=== PATIENT | male | born 1955 | race African-American/Black ===

== ENCOUNTER 2018-08-06 19:42 | Emergency (ER) | payer OTHER ==
[2018-08-06 19:55] VITALS: BP 144/85; PULSE 96; TEMP 98.8; BMI 22.9
--- NOTE | 2018-08-06 19:59 | PDOC ---
Rapid Medical Evaluation Chief Complaint: Laceration Time Seen by Provider: 08/06/18 19:56 Medical Evaluation: Allergies Allergy/AdvReac Type Severity Reaction Status Date / Time No Known Allergies Allergy Verified 08/06/18 19:51 Vital Signs Temp Pulse Resp BP Pulse Ox 98.8 F 96 H 18 144/85 97 08/06/18 19:52 08/06/18 19:52 08/06/18 19:52 08/06/18 19:52 08/06/18 19:52 08/06/18 19:57 I have performed a brief in-person evaluation of this patient. The patient presents with a chief complaint of: injury to right 4th digit x this afternoon. Patient reports laceration on closet door. possible tetanus from surgery within the last 5 years Pertinent physical exam findings: NAD even and unlabored breathing +dressing on 4th right digit I have ordered the following: xray of right 4th digit The patient will proceed to the ED for further evaluation. Discharge Disposition - Diagnosis Laceration of finger - Referrals - Patient Instructions - Post Discharge Activity
[2018-08-06] MEDS ORDERED: CEFAZOLIN 1 GM in DEXTROSE 5%-WATER - 50 ML IVPB ONE (20:53)
--- NOTE | 2018-08-06 21:00 | PDOC ---
History of Present Illness - General Chief Complaint: Laceration Stated Complaint: LACERATION RIGHT FOURTH FINGER Time Seen by Provider: 08/06/18 19:56 - History of Present Illness Initial Comments: 08/06/18 20:56 63-year-old male with a past medical history history significant for hypertension presents for evaluation of a right fourth digit injury. The injury occurred while falling into a closet door accidentally closed door on the tip of his finger. Seen at an urgent care he was told to report to the emergency room for further evaluation. Past History - Past Medical History Allergies/Adverse Reactions: Allergies Allergy/AdvReac Type Severity Reaction Status Date / Time No Known Allergies Allergy Verified 08/06/18 19:51 Home Medications: Ambulatory Orders Cephalexin [Keflex] 500 mg PO QID 5 Days #20 capsule 08/06/18 Hydrochlorothiazide [Hctz -] 37.5 mg PO DAILY 08/06/18 COPD: No HTN: Yes - Surgical History Appendectomy: Yes GI Surgery: Yes (bowel obstruction) - Suicide/Smoking/Psychosocial Hx Smoking History: Never smoked Review of Systems - Review of Systems Musculoskeletal: Yes: See HPI *Physical Exam - Vital Signs Last Vital Signs Temp Pulse Resp BP Pulse Ox 98.8 F 96 H 18 144/85 97 08/06/18 19:52 08/06/18 19:52 08/06/18 19:52 08/06/18 19:52 08/06/18 19:52 - Physical Exam Comments: 08/06/18 20:57 The distal portion of the right fourth finger sheared off the nail is intact FDS and FDP work independently. Subcutaneous fat is exposed. I do not visualize bone. He has no gross motor deficits sensory is intact at the tip of the finger. Moderate Sedation - Procedure Monitoring Vital Signs: Procedure Monitoring Vital Signs Temperature 98.8 F 08/06/18 19:52 Pulse Rate 96 H 08/06/18 19:52 Respiratory Rate 18 08/06/18 19:52 Blood Pressure 144/85 08/06/18 19:52 O2 Sat by Pulse Oximetry (%) 97 08/06/18 19:52 Medical Decision Making - Medical Decision Making 08/06/18 20:57 X-ray show a eloisa fracture at the distal phalanx. This is an open eloisa fracture of the right fourth digit. Patient was given a digital block aseptically. Cleaned with Betadine and saline placed in a dry sterile dressing with Xeroform with a bandage to cover. This case was discussed with hand surgery. Hand surgery will see him in 2 days by mouth antibiotics given at discharge IV Ancef given in the emergency room. Dr Phan is in agreement with this plan. *DC/Admit/Observation/Transfer Diagnosis at time of Disposition: Open fracture of tuft of distal phalanx of finger Diagnosis at time of Disposition: (Ruled Out): Laceration of finger - Discharge Dispostion Disposition: HOME Condition at time of disposition: Stable Decision to Admit order: No - Prescriptions Prescriptions: Cephalexin [Keflex] 500 mg PO QID 5 Days #20 capsule - Referrals Referrals: Agusto Phan MD [Staff Physician] - - Patient Instructions Printed Discharge Instructions: DI for Open Fracture Additional Instructions: Please follow up with Dr Phan [phone]. Call tomorrow for an appointment and Dr Phan will see you Monday in his clinic - Post Discharge Activity
[2018-08-06] MEDS ORDERED: CEFAZOLIN 1 GM/D5W 1 GM/50 ML BAG ONE (21:24)
== END 2018-08-06 21:52 | disposition home or self-care (01) ==
LOC: JERFT 19:42
PROC: 3E03329 Introduction of Other Anti-infective into Peripheral Vein, Percutaneous Approach (ICD-10-PCS; principal; 2018-08-06)
PROC: 3E013BZ Introduction of Anesthetic Agent into Subcutaneous Tissue, Percutaneous Approach (ICD-10-PCS; 2018-08-06)
DX: S62.664B Nondisplaced fracture of distal phalanx of right ring finger, initial encounter for open fracture (principal); W01.198A Fall on same level from slipping, tripping and stumbling with subsequent striking against other object, initial encounter; Y93.89 Activity, other specified; Y92.89 Other specified places as the place of occurrence of the external cause; Y99.8 Other external cause status
CPT/HCPCS: 73140-TC-RT-FY; 99281-25

== ENCOUNTER 2018-08-08 13:15 | Day surgery (SDC) | payer OTHER ==
[2018-08-08 13:24] VITALS: BMI 22.9
--- NOTE | 2018-08-08 13:24 | PDOC ---
History of Present Illness - History of Present Illness Initial Comments: 08/08/18 13:48 The patient is a 63 year old male, with a significant past medical history of hypertension, who presents to the emergency department with a right fourth digit injury sustained after falling into a closet door on Monday. He states he has a weak knee (secondary to a torn right meniscus with plan for surgical repair in September) and his knee gave out when he was walking which is what prompted his fall. He states the closet door closed on his finger. He states he is in 9/10 pain currently. He states he was unable to recover the top of his finger the was avulsed off during the incident. He states he was advised by urgent care to come to the emergency room for further evaluation. The patient denies chest pain, shortness of breath, headache and dizziness. The patient denies fever, chills, nausea, vomit, diarrhea and constipation. The patient denies dysuria, frequency, urgency and hematuria. Allergies:NKDA Past surgical history: bowel resection Social history: denies toxic habits <Brandi Morales - Last Filed: 08/08/18 13:48> - General History Source: Patient Exam Limitations: No Limitations <Karen Berry - Last Filed: 08/09/18 08:28> - General Chief Complaint: Bone Injury Stated Complaint: HAND INJURY Time Seen by Provider: 08/08/18 13:24 Past History <Brandi Morales - Last Filed: 08/08/18 13:48> - Past Medical History COPD: No HTN: Yes - Surgical History Appendectomy: Yes GI Surgery: Yes (bowel obstruction) - Suicide/Smoking/Psychosocial Hx Smoking History: Former smoker Have you smoked in the past 12 months: No If you are a former smoker, when did you quit?: 2008 Information on smoking cessation initiated: Yes Hx Alcohol Use: No Drug/Substance Use Hx: No <Karen Berry - Last Filed: 08/09/18 08:28> - Past Medical History Allergies/Adverse Reactions: Allergies Allergy/AdvReac Type Severity Reaction Status Date / Time Iodinated Contrast- Oral and Allergy Verified 08/08/18 13:47 IV Dye Home Medications: Ambulatory Orders Hydrochlorothiazide [Hctz -] 37.5 mg PO DAILY 08/06/18 Amox-Tr/K Cl [Augmentin - 875Mg Tablet] 1 tab PO BID #14 tablet 08/08/18 Oxycodone HCl/Acetaminophen [Percocet 5/325 -] 1 - 2 tab PO Q6H 5 Days #40 tab MDD 5 08/08/18 Review of Systems - Review of Systems Able to Perform ROS?: Yes Comments:: 08/08/18 13:49 CONSTITUTIONAL: Absent: fever, no chills, no fatigue EYES: Absent: visual changes ENT: Absent: ear pain, no sore throat CARDIOVASCULAR: Absent: chest pain, no palpitations RESPIRATORY: Absent: cough, no SOB GASTROINTESTINAL: Absent: abdominal pain, no nausea, no vomiting, no constipation, no diarrhea GENITOURINARY: Absent: dysuria, no frequency, no hematuria MUSCULOSKELETAL: (+) right 4th digit injury and pain. Absent: back pain, no myalgia SKIN: Absent: rash NEURO: Absent: headache <Brandi Morales - Last Filed: 08/08/18 13:48> *Physical Exam - Vital Signs Last Vital Signs Temp Pulse Resp BP Pulse Ox 97.8 F 92 H 20 136/84 99 08/08/18 13:21 08/08/18 13:21 08/08/18 13:21 08/08/18 13:21 08/08/18 13:21 - Physical Exam Comments: 08/08/18 13:49 GENERAL: The patient is in no acute distress. HEAD: Normal with no signs of trauma. EYES: PERRLA, EOMI, sclera anicteric, conjunctiva clear. ENT: Ears normal, nares patent, oropharynx clear without exudates. Moist mucous membranes. NECK: Normal range of motion, supple without lymphadenopathy, JVD, or masses. LUNGS: Breath sounds equal, clear to auscultation bilaterally. No wheezes, and no crackles. HEART:Regular rate and rhythm, normal S1 and S2 without murmur, rub or gallop. ABDOMEN: Soft, nontender, normoactive bowel sounds. No guarding, no rebound. No masses palpable. EXTREMITIES: Normal range of motion, no edema. No clubbing or cyanosis. No erythema, or tenderness. NEUROLOGICAL: Cranial nerves II through XII grossly intact. Normal speech. No focal neurological deficits. MUSCULOSKELETAL: Back non-tender to palpation, no CVA tenderness SKIN: Warm, Dry, normal turgor, no rashes or lesions noted. <Brandi Morales - Last Filed: 08/08/18 13:48> - Vital Signs Last Vital Signs Temp Pulse Resp BP Pulse Ox 97.8 F 92 H 20 136/84 99 08/08/18 13:21 08/08/18 13:21 08/08/18 13:21 08/08/18 13:21 08/08/18 13:21 <Karen Berry - Last Filed: 08/09/18 08:28> Moderate Sedation - Procedure Monitoring Vital Signs: Procedure Monitoring Vital Signs Temperature 97.8 F 08/08/18 13:21 Pulse Rate 92 H 08/08/18 13:21 Respiratory Rate 20 08/08/18 13:21 Blood Pressure 136/84 08/08/18 13:21 O2 Sat by Pulse Oximetry (%) 99 08/08/18 13:21 <Brandi Morales - Last Filed: 08/08/18 13:48> - Procedure Monitoring Vital Signs: Procedure Monitoring Vital Signs Temperature 97.8 F 08/08/18 13:21 Pulse Rate 92 H 08/08/18 13:21 Respiratory Rate 20 08/08/18 13:21 Blood Pressure 136/84 08/08/18 13:21 O2 Sat by Pulse Oximetry (%) 99 08/08/18 13:21 <Karen Berry - Last Filed: 08/09/18 08:28> ED Treatment Course - LABORATORY CBC & Chemistry Diagram: 08/08/18 13:31 08/08/18 13:31 <Karen Berry - Last Filed: 08/09/18 08:28> Medical Decision Making - Medical Decision Making 08/08/18 14:16 EKG: NSR rate of 76 bpm, axis nml, intervals nml, no st elevation or depression To the OR <Karen Berry - Last Filed: 08/09/18 08:28> *DC/Admit/Observation/Transfer - Attestations Scribe Attestion: 08/08/18 13:49 Documentation prepared by Brandi Morales, acting as medical imaging specialist for Karen Berry MD <Brandi Morales - Last Filed: 08/08/18 13:48> - Discharge Dispostion Decision to Admit order: Yes <Jamal,Karen - Last Filed: 08/09/18 08:28> Diagnosis at time of Disposition: Open fracture of tuft of distal phalanx of finger - Discharge Dispostion Disposition: HOME Condition at time of disposition: Improved
[2018-08-08 14:16] LABS: BASO % 0.6 % (0-2.0); EOS % 3.7 % (0-4.5); HEMATOCRIT 45.6 % (35.4-49); HEMOGLOBIN 15.9 GM/dL (11.7-16.9); LYMPH % 27.7 % (8-40); MCH 32.7 pg (25.7-33.7); MCHC 34.9 g/dl (32.0-35.9); MEAN CELL VOLUME 93.8 fl (80-96); MEAN PLT VOLUME 9.2 fl (7.5-11.1); MONO % 6.4 % (3.8-10.2); NEUT % 61.6 % (42.8-82.8); PLATELET COUNT 222 K/MM3 (134-434); RBC 4.87 M/mm3 (4.00-5.60); RDW 13.1 % (11.9-15.9)
[2018-08-08 14:42] LABS: PROTHROMBIN TIME (PATIENT) 11.8 SEC (9.7-13.0)
[2018-08-08] MEDS ORDERED: ceFAZolin 2 GRAM PREMIX BAG IVPB SCH (14:45)
[2018-08-08 14:50] LABS: ALBUMIN 4.5 g/dl (3.4-5.0); ALK PHOS 67 U/L (45-117); ANION GAP 7 MMOL/L (8-16); BILIRUBIN,TOTAL 0.6 mg/dL (0.2-1); BLOOD UREA NITROGEN 18 mg/dL (7-18); CALCIUM 9.3 mg/dL (8.5-10.1); CHLORIDE 103 mmol/L (98-107); CO2 28 mmol/L (21-32); GLUCOSE,RANDOM 98 mg/dL (74-106); POTASSIUM 4.8 mmol/L (3.5-5.1); SGOT/AST 53 U/L (15-37); SGPT/ALT 72 U/L (13-61); SODIUM 137 mmol/L (136-145); TOT PROT 8.5 g/dl (6.4-8.2)
[2018-08-08] MEDS ORDERED: ONDANSETRON 4 MG/2 ML VIAL IVPUSH PRN ×2 (15:00→16:16)
[2018-08-08] MEDS ORDERED: LACTATED RINGERS SOLUTION 1,000 ML IV SCH ×2 (15:00→16:30)
--- NOTE | 2018-08-08 15:06 | HP ---
Admitting History and Physical - Admission Chief Complaint: left ring finger injury History of Present Illness: 63yo RHD female PMH HTN presented after an accidental left ring finger tip avulsion 2 days ago. he finger tip was crush off in a closet door while falling in his bedroom. He was seen and offered first aid in the ED. He has been on oral antibiotics. He presented to clinic for reccomendations. History Source: Patient, Medical Record Limitations to Obtaining History: No Limitations - Past Medical History Cardiovascular: Yes: HTN - Smoking History Smoking history: Former smoker Have you smoked in the past 12 months: No If you are a former smoker, when did you quit?: 2009 - Alcohol/Substance Use Hx Alcohol Use: No History of Substance Use: reports: None - Social History ADL: Independent History of Recent Travel: No Home Medications - Allergies Allergies/Adverse Reactions: Allergies Allergy/AdvReac Type Severity Reaction Status Date / Time Iodinated Contrast- Oral and Allergy Verified 08/08/18 13:47 IV Dye - Home Medications Home Medications: Ambulatory Orders Hydrochlorothiazide [Hctz -] 37.5 mg PO DAILY 08/06/18 Amox-Tr/K Cl [Augmentin - 875Mg Tablet] 1 tab PO BID #14 tablet 08/08/18 Oxycodone HCl/Acetaminophen [Percocet 5/325 -] 1 - 2 tab PO Q6H 5 Days #40 tab MDD 5 08/08/18 Review of Systems - Review of Systems Constitutional: denies: Chills, Fever Eyes: denies: Blind Spots, Recent Change in Vision HENT: denies: Difficult Swallowing, Ocular Prosthesis Neck: denies: Pain on Movement, Tenderness Cardiovascular: denies: Chest Pain, Palpitations Respiratory: denies: Cough, SOB Gastrointestinal: denies: Bloating, Constipation Genitourinary: denies: Discharge, Dysuria Breasts: reports: No Symptoms Reported. denies: Pain Musculoskeletal: denies: Joint Swelling, Muscle Weakness Integumentary: denies: Lump, Pallor Neurological: denies: Seizure, Syncope Endocrine: denies: Unexplained Weight Gain, Unexplained Weight Loss Hematology/Lymphatic: denies: Easily Bruised, Excessive Bleeding Physical Examination Vital Signs: Vital Signs Temperature 97.8 F 08/08/18 13:21 Pulse Rate 92 H 08/08/18 13:21 Respiratory Rate 20 08/08/18 13:21 Blood Pressure 136/84 08/08/18 13:21 O2 Sat by Pulse Oximetry (%) 99 08/08/18 13:21 Constitutional: Yes: Well Nourished, No Distress, Calm Eyes: Yes: Conjunctiva Clear, EOM Intact HENT: Yes: Atraumatic, Normocephalic Neck: Yes: Supple, Trachea Midline Cardiovascular: Yes: Regular Rate and Rhythm, S1, S2 Respiratory: Yes: Regular, CTA Bilaterally Gastrointestinal: Yes: Normal Bowel Sounds, Soft. No: Tenderness ...Rectal Exam: Yes: Deferred Renal/: No: CVA Tenderness - Left, CVA Tenderness - Right Breast(s): No: Gynecomastia, Nipple Inversion Musculoskeletal: No: Muscle Pain, Muscle Weakness Extremities: Yes: Other (left ring finger tip open, exposed bone). No: Cool, Cyanosis Edema: No Peripheral Pulses WNL: Yes Peripheral Pulses: Left Radial: 2+, Right Radial: 2+, Left Doralis Pedis: 2+, Right Dorsalis Pedis: 2+, Left Femoral: 2+, Right Femoral: 2+ Wound/Incision: Yes: Clean/Dry, Unapproximated, Other Neurological: Yes: Alert, Oriented Labs: CBC, BMP 08/08/18 13:31 08/08/18 13:31 Problem List - Problems (1) Open fracture of tuft of distal phalanx of finger Assessment/Plan: 63yo RHD male with left ring finger open tuft fracture npo and ivf hydration iv antibiotic OR for Left ring finger tip revision Discussed with patient risks, benefits and alternatives of laparoscopic possible open ectomy, including but not limited to bleeding, infection, injury to adjacent structures, need for further procedures, ; alternatives include antibiotics, delayed or no surgery - risks of this include failure of nonoperative therapy, perforation, sepsis, recurrence, . Patient desires to proceed with operation - will take to OR for above. Informed consent signed for same. Code(s): S62.639B - DISP FX OF DISTAL PHALANX OF UNSP FINGER, INIT FOR OPN FX (2) HTN (hypertension) Code(s): I10 - ESSENTIAL (PRIMARY) HYPERTENSION Qualifiers: Hypertension type: essential hypertension Qualified Code(s): I10 - Essential (primary) hypertension (3) Transaminitis Code(s): R74.0 - NONSPEC ELEV OF LEVELS OF TRANSAMNS & LACTIC ACID DEHYDRGNSE (4) Leukocytosis Code(s): D72.829 - ELEVATED WHITE BLOOD CELL COUNT, UNSPECIFIED Qualifiers: Leukocytosis type: bandemia Qualified Code(s): D72.825 - Bandemia
--- NOTE | 2018-08-08 15:07 | DS ---
Physical Examination Vital Signs: Vital Signs Temperature 97.8 F 08/08/18 13:21 Pulse Rate 92 H 08/08/18 13:21 Respiratory Rate 20 08/08/18 13:21 Blood Pressure 136/84 08/08/18 13:21 O2 Sat by Pulse Oximetry (%) 99 08/08/18 13:21 Findings/Remarks: stable postoperativlely. tolerating diet Constitutional: Yes: Well Nourished, No Distress, Calm Eyes: Yes: Conjunctiva Clear, EOM Intact HENT: Yes: Atraumatic, Normocephalic Neck: Yes: Supple, Trachea Midline Cardiovascular: Yes: Regular Rate and Rhythm, S1, S2 Respiratory: Yes: Regular, CTA Bilaterally Gastrointestinal: Yes: Normal Bowel Sounds, Soft. No: Tenderness ...Rectal Exam: Yes: Deferred Renal/: No: CVA Tenderness - Left, CVA Tenderness - Right Breast(s): No: Discharge from Nipple, Nipple Inversion Extremities: No: Cool, Cyanosis Edema: No Peripheral Pulses WNL: Yes Peripheral Pulses: Left Radial: 2+, Right Radial: 2+, Left Doralis Pedis: 2+, Right Dorsalis Pedis: 2+, Left Femoral: 2+, Right Femoral: 2+ Wound/Incision: Yes: Clean/Dry, Well Approximated, Dressing Dry and Intact ( right ring finger) Neurological: Yes: Alert, Oriented Psychiatric: Yes: Alert, Oriented Labs: CBC, BMP 08/08/18 13:31 08/08/18 13:31 Discharge Summary Reason For Visit: HAND INJURY Current Active Problems Open fracture of tuft of distal phalanx of finger (Acute) Procedures: Principal: right ring finger V-Y flap reconstruction Hospital Course: admitted for emergency surgery. uneventful procedure. stable for discharge home Condition: Improved - Instructions Diet, Activity, Other Instructions: Postoperative instructions: You had a right ring finger V-Y flap reconstruction on 08/08/[address] Agusto Phan of [facility]. Activity: Resume your usual activities gradually, but no heavy exertion or lifting more than 10-15 pounds for 4-6 weeks. Keep dressing clean and dry until followup appointment. Eat lightly at first, but advance to your usual diet as tolerated. Pain: For pain, you may use and alternate Tylenol (acetaminophen) 1-2 pills and/ or ibuprofen 200 mg (1-3 pills) every 6 hours each as needed; this means that you can take one OR the other at 3-hour intervals. If you are prescribed a Tylenol/narcotic combination for severe pain, use it instead of plain Tylenol as needed and switch back when your pain starts decreasing. Do not take more than 4000 mg of acetaminophen in a day. Take medications as prescribed or indicated on the labeling. Follow-up: Call Dr. Phan office at [phone] to make your postop appointment (Monday in approximately 2 weeks after surgery as advised). Clinic is held in the [facility] on the fifth floor - [facility] of [facility]. Call the office if you have: * increasing pain not responsive to pain medication * fever of 101F or higher * unusual or increasing bleeding or drainage from wounds * increasing redness or swelling at wound sites Also, see your primary medical doctor within 1-2 weeks. Disposition: HOME - Home Medications Comprehensive Discharge Medication List: Ambulatory Orders Hydrochlorothiazide [Hctz -] 37.5 mg PO DAILY 08/06/18
--- NOTE | 2018-08-08 15:07 | OP ---
Operative Note - Note: Operative Date: 08/08/18 Pre-Operative Diagnosis: right ring finger tip avulsion Operation: Right ring finger V-Y flap reconstruction Findings: right ring finger open tuft fracture Post-Operative Diagnosis: Same as Pre-op Surgeon: Agusto Phan Anesthesiologist/PREFABRICATOR: Zahira Meraz Anesthesia: Local (1% lidocaine ), MAC Specimens Removed: none Estimated Blood Loss (mls): 5 Fluid Volume Replaced (mls): 500 Operative Report Dictated: Yes
[2018-08-08] MEDS ORDERED: CEFAZOLIN 1 GM/D5W 2 GM/100 ML BAG ONE (15:13)
[2018-08-08] MEDS ORDERED: morphine SULFATE 4 MG/ML VIAL IVPUSH PRN (15:13)
[2018-08-08] MEDS ORDERED: ACETAMINOPHEN 1000 MG/100 ML VIAL (NON FORMULARY) IVPB ONE (15:17)
[2018-08-08] MEDS ORDERED: oxyCODONE HCL 5 MG TABLET PO PRN ×2 (16:16)
[2018-08-08] MEDS ORDERED: MIDAZOLAM HCL 2 MG/2 ML SINGLE DOSE VIAL ONE (16:31)
[2018-08-08] MEDS ORDERED: FLUMAZENIL 0.5 MG/5 ML VIAL ONE (16:32)
[2018-08-08] MEDS ORDERED: PROPOFOL 20 ML ONE ×4 (16:33→16:34)
[2018-08-08] MEDS ORDERED: ceFAZolin SODIUM 1 GM VIAL IVPB ONE (16:45)
[2018-08-08] MEDS ORDERED: LIDOCAINE HCL 1%, 10 MG/ML (50 mL VIAL) IJ ONE (16:49)
[2018-08-08 17:43] VITALS: TEMP 97.6
[2018-08-08 18:33] VITALS: BP 137/85; PULSE 71
--- NOTE | 2018-08-09 11:11 | OP ---
DATE OF OPERATION: 08/08/2018 PREOPERATIVE DIAGNOSIS: Right ring finger tip avulsion open fracture of tuft. POSTOPERATIVE DIAGNOSIS: Right ring finger tip avulsion open fracture of tuft. PROCEDURE: Right ring finger V-Y flap advancement reconstruction. ATTENDING SURGEON: Agusto Phan MD MOLDER SWEEP: No one. ANESTHESIA: Zahira Meraz MD ANESTHESIA TYPE: Local with MAC. Local consisted of 1% lidocaine plain. A total of 10 mL given in a digital block fashion. ESTIMATED BLOOD LOSS: 5 mL. IV FLUID ADMINISTERED: 500 mL crystalloid. SPECIMEN: None. IMPLANTS: None. BRIEF FINDINGS: The patient had a right ring finger open tuft fracture sustained 2 days earlier. She was counseled regarding the risks, benefits, and alternatives to surgical procedure. Signed informed consent. Was taken to the procedure. DESCRIPTION OF PROCEDURE: The patient was brought to the operating room and was placed in supine position on the operating room table with the right arm extended at 90 degrees perpendicular to the body's midline axis. The right hand was prepped and draped into a standard surgical field. The lower extremity had SCDs placed to compression. He received intravenous antibiotics in the form of Ancef 2 g. He was given sedation, provided with supplemental oxygen when stable. A formal time-out was completed identifying the operative site and procedure. With all parties in agreement, began first with a tourniquet applied using a [place] to the ring finger after exsanguination. We then began by debriding the open tuft fracture. The hematoma was elevated. There appeared to be a small amount of debris that was also debrided along with devitalized tissue. After completing with the wound clean, the site was irrigated. The distal phalanx was exposed and then rongeured back to a level where adequate closure could be performed. We then proceeded with creation of a V-Y flap. The V was opened on the volar pad at the distal tip. It was spread wide and then closed in Y fashion using a 4-0 nylon in interrupted fashion along the length of the incision. The distal aspect of the tip was approximated first followed by the remainder of the Y flap. The skin was cleaned. Sterile dressings were placed including Xeroform, 4 x 4, and rolled gauze. The patient was awoken from sedation having tolerated the procedure well. He was stable throughout. He was returned to recovery in stable condition. MD LORAINE Vanegas/[id number]
--- NOTE | 2018-08-09 16:56 | EKG ---
Test Reason : Blood Pressure : / mmHG Vent. Rate : 076 BPM Atrial Rate : 076 BPM P-R Int : 178 ms QRS Dur : 080 ms QT Int : 364 ms P-R-T Axes : 057 024 033 degrees QTc Int : 409 ms NORMAL SINUS RHYTHM POSSIBLE LEFT ATRIAL ENLARGEMENT BORDERLINE ECG NO PREVIOUS ECGS AVAILABLE Confirmed by SAMUEL ALARCON, GOLDEN ([id number]) on 08/09/2018 4:56:19 PM Referred By: Confirmed By:GOLDEN BAKER MD
== END 2018-08-08 18:15 | disposition home or self-care (01) ==
LOC: JOR 13:15 → JASUSAT 13:25
PROC: 0HXFXZZ Transfer Right Hand Skin, External Approach (ICD-10-PCS; principal; 2018-08-08 16:30)
DX: S61.214D Laceration without foreign body of right ring finger without damage to nail, subsequent encounter (principal); S62.664D Nondisplaced fracture of distal phalanx of right ring finger, subsequent encounter for fracture with routine healing; X58.XXXD Exposure to other specified factors, subsequent encounter; I10 Essential (primary) hypertension
CPT/HCPCS: 36415; 80053; 85025; 85610; 86900; 93005; 93010; 99284-25; J0131